=== PATIENT | female | born 1990 | race Caucasian/White ===

== ENCOUNTER → 2016-04-09 | Outpatient (CLI) | payer MEDICAID ==
[~2016-04-09] MED LIST: PRENTAB8 PO
[2016-04-09 19:01] LABS: BASO % 0.3 % (0.0-1.0); EOS # 0.2 K/mm3 (0.0-0.50); EOS % 1.6 % (0.0-3.0); LARGE UNSTAINED CELL # 0.1 K/mm3 (0.0-0.4); LARGE UNSTAINED CELL % 1.2 % (0.0-4.0); LYMPH # 2.4 K/mm3 (1.5-6.5); LYMPH % 24.4 % (24.0-44.0); MEAN CORPUSCULAR HEMOGLOBIN 24.8 pg (27.0-33.0); MEAN CORPUSCULAR HGB CONC 31.7 g/dl (32.0-36.5); MEAN CORPUSCULAR VOLUME 78.3 fl (80.0-96.0); MONO # 0.3 K/mm3 (0.0-0.8); MONO % 3.6 % (0.0-5.0); NEUTROPHILS # 6.7 K/mm3 (1.8-7.7); NEUTROPHILS % 68.8 % (36.0-66.0); PLATELET COUNT, AUTOMATED 318 k/mm3 (150-450); RED CELL DISTRIBUTION WIDTH 13.7 % (11.5-14.5); WHITE BLOOD COUNT 9.7 K/mm3 (4.0-10.0)
[2016-04-10 08:40] LABS: HIV SCRN NEGATIVE (NEGATIVE); HIV SCRN1 NEGATIVE (NEGATIVE)
[2016-04-10 08:41] LABS: CONTROL LINE INT CTR LINE PRESENT
[2016-04-11 10:05] LABS: HBsAg Prenatal NEGATIVE (NEGATIVE)
== END ==
LOC: M SMT 14:38
PROVIDERS: ATTEND Advanced Practice Midwife
DX: Z34.81 Encounter for supervision of other normal pregnancy, first trimester (principal)

== ENCOUNTER → 2016-04-16 | Outpatient (CLI) | payer MEDICAID | LOC: M LAB 12:09 | PROVIDERS: ATTEND Advanced Practice Midwife | DX: Z34.81 Encounter for supervision of other normal pregnancy, first trimester (principal) ==

== ENCOUNTER → 2016-04-22 | Outpatient (CLI) | payer MEDICAID ==
[2016-04-22 12:28] LABS: ALT/SGPT 19 U/L (12-78); AST/SGOT 13 U/L (15-37); BILIRUBIN,TOTAL 0.3 MG/DL (0.2-1.0); CREATININE FOR GFR 0.68 MG/DL (0.55-1.02); GLOMERULAR FILTRATION RATE > 60.0 (>60)
[2016-04-22 12:40] LABS: CREATININE CLEARANCE, URINE 160.2 ML/MIN (75-115); CREATININE, SERUM 0.7 MG/DL (0.6-1.0)
== END ==
LOC: M LAB 11:31
PROVIDERS: ATTEND Advanced Practice Midwife
DX: Z34.81 Encounter for supervision of other normal pregnancy, first trimester (principal)

== ENCOUNTER → 2016-04-24 | Outpatient (CLI) | payer MEDICAID | LOC: M LAB 08:27 | PROVIDERS: ATTEND Advanced Practice Midwife | DX: R73.02 Impaired glucose tolerance (oral) (principal) ==

== ENCOUNTER → 2016-08-21 | Outpatient (CLI) | payer OTHER, MEDICAID ==
[2016-08-21 17:32] LABS: BASO % 0.1 % (0.0-1.0); EOS # 0.1 K/mm3 (0.0-0.50); EOS % 1.3 % (0.0-3.0); LARGE UNSTAINED CELL # 0.2 K/mm3 (0.0-0.4); LARGE UNSTAINED CELL % 2.2 % (0.0-4.0); LYMPH # 2.3 K/mm3 (1.5-6.5); LYMPH % 21.6 % (24.0-44.0); MEAN CORPUSCULAR HEMOGLOBIN 27.7 pg (27.0-33.0); MEAN CORPUSCULAR HGB CONC 33.7 g/dl (32.0-36.5); MEAN CORPUSCULAR VOLUME 82.4 fl (80.0-96.0); MONO # 0.5 K/mm3 (0.0-0.8); MONO % 4.8 % (0.0-5.0); NEUTROPHILS # 7.4 K/mm3 (1.8-7.7); PLATELET COUNT, AUTOMATED 279 k/mm3 (150-450); RED CELL DISTRIBUTION WIDTH 13.6 % (11.5-14.5); WHITE BLOOD COUNT 10.6 K/mm3 (4.0-10.0)
== END ==
LOC: M LAB 16:11
PROVIDERS: ATTEND Obstetrics & Gynecology
DX: O24.113 Pre-existing type 2 diabetes mellitus, in pregnancy, third trimester (principal)

== ENCOUNTER → 2016-09-17 | Outpatient (CLI) | payer OTHER ==
[~2016-09-17] MED LIST changes: +ACET50TA PO; +FERR325T3 PO; +GLYB25TA PO; +IBUP-1022 PO; +LABE30TA PO; +METAPOW PO; +METF500T13 PO
[2016-09-17 14:38] LABS: MEAN CORPUSCULAR HEMOGLOBIN 28.1 pg (27.0-33.0); MEAN CORPUSCULAR HGB CONC 34.3 g/dl (32.0-36.5); MEAN CORPUSCULAR VOLUME 81.9 fl (80.0-96.0); RED CELL DISTRIBUTION WIDTH 13.5 % (11.5-14.5)
== END ==
LOC: M LAB 13:05
PROVIDERS: ATTEND Obstetrics & Gynecology
DX: Z34.83 Encounter for supervision of other normal pregnancy, third trimester (principal)

== ENCOUNTER → 2016-09-18 | Outpatient (CLI) | payer OTHER | LOC: M LAB 11:46 | PROVIDERS: ATTEND Obstetrics & Gynecology | DX: O24.113 Pre-existing type 2 diabetes mellitus, in pregnancy, third trimester (principal); Z3A.00 Weeks of gestation of pregnancy not specified ==

== ENCOUNTER → 2016-10-26 | Outpatient (REF) | payer OTHER | LOC: M LAB REF 17:01 | PROVIDERS: ATTEND Obstetrics & Gynecology | DX: O24.113 Pre-existing type 2 diabetes mellitus, in pregnancy, third trimester (principal); Z3A.00 Weeks of gestation of pregnancy not specified ==

== ENCOUNTER 2016-11-08 10:24 | Inpatient (IN) | payer OTHER ==
[~2016-11-08] VITALS: Ht 162.6 cm; Wt 115.0 kg
[2016-11-08] VITALS (19 sets, daily range): BP systolic 106–139; BP diastolic 56–80
[~2016-11-08 10:24] MED LIST changes: -ACET50TA PO; -FERR325T3 PO; -GLYB25TA PO; -IBUP-1022 PO; -LABE30TA PO; -METAPOW PO; -METF500T13 PO
[2016-11-08] MEDS ORDERED: LABE30TA PO (10:33)
[2016-11-08] MEDS ORDERED: METAPOW PO (10:33)
[2016-11-08] MEDS ORDERED: FERR325T3 PO (10:33)
[2016-11-08] MEDS ORDERED: GLYB25TA PO (10:33)
[2016-11-08] MEDS ORDERED: METF500T13 PO (10:33)
[2016-11-08] MEDS ORDERED: LR 1,000 ML IV SCH (10:34)
[2016-11-08] MEDS ORDERED: LACTATED RINGER'S 1000 ML IV STA (10:34)
[2016-11-08] MEDS ORDERED: LORazepam 1 MG TAB PO PRN (10:45)
[2016-11-08 11:19] LABS: MEAN CORPUSCULAR HEMOGLOBIN 28.1 pg (27.0-33.0); MEAN CORPUSCULAR HGB CONC 34.9 g/dl (32.0-36.5); MEAN CORPUSCULAR VOLUME 80.7 fl (80.0-96.0); RED CELL DISTRIBUTION WIDTH 14.1 % (11.5-14.5); WHITE BLOOD COUNT 10.2 K/mm3 (4.0-10.0)
[2016-11-08 11:25] LABS: INR 0.98
[2016-11-08] MEDS ORDERED: miSOPROStol 50 MCG 1/2 TAB (S0191) PV ONE ×2 (12:30→16:15)
[2016-11-08 12:32] LABS: ALT/SGPT 31 U/L (12-78); AST/SGOT 27 U/L (15-37); BILIRUBIN,TOTAL 0.4 MG/DL (0.2-1.0); CREATININE FOR GFR 0.54 MG/DL (0.55-1.02); GLOMERULAR FILTRATION RATE > 60.0 (>60); URIC ACID 3.9 MG/DL (2.6-6.0)
[2016-11-08 12:39] LABS: FREE T4 0.94 NG/DL (0.76-1.46)
[2016-11-08] MEDS ORDERED: BUTORPHANOL 2 MG/ML INJ (J0595) IV ONE (12:45)
[2016-11-08] MEDS ORDERED: PROMETHAZINE INJ 25 MG/ML VIAL (J2550) IV ONE (12:45)
[2016-11-08] MEDS ORDERED: LABETALOL 200 MG TAB PO ONE (19:30)
[2016-11-08] MEDS ORDERED: FENTANYL 2MCG/ML ROPIVACAINE 0.2% IN 0.9% NACL 200ML IVBAG As Ordered ONE (20:52)
[2016-11-08] MEDS ORDERED: LABETALOL 200 MG TAB PO SCH (21:00)
[2016-11-08] MEDS ORDERED: OXYTOCIN DRIP 30 UNITS in APPROPRIATE DILUENT 1 EA IV SCH (21:30)
[2016-11-08] MEDS ORDERED: EPIDURAL/PCA KEYS XX PRN (22:00)
[2016-11-08] MEDS ORDERED: ONDANSETRON 4MG/2ML VIAL (J2405) IV PRN (22:00)
[2016-11-08] MEDS ORDERED: diphenhydrAMINE INJ 50MG/ML VIAL (J1200) IV PRN (22:00)
[2016-11-08] MEDS ORDERED: ePHEDrine SULFATE 25 MG/5 ML(5MG/ML) SYRINGE IV PRN (22:00)
[2016-11-08] MEDS ORDERED: EPIDURAL COMMENT XX SCH (22:00)
[2016-11-08] MEDS ORDERED: FENTANYL/ROPIVACAINE/NACL BAG 200 ML EPIDURAL SCH (22:00)
[2016-11-08] MEDS ORDERED: REFRIGERATOR IV KEYS XX PRN (22:00)
[2016-11-08] MEDS ORDERED: LACTATED RINGER'S 1000 ML IV PRN (22:00)
[2016-11-08] MEDS ORDERED: NALOXONE INJ 0.4 MG/1 ML VIAL (J2310) IV PRN (22:00)
[2016-11-09] VITALS (30 sets, daily range): BP systolic 106–139; BP diastolic 55–85
[2016-11-09] MEDS ORDERED: LABETALOL 200 MG TAB PO ONE ×2 (07:30→19:00)
[2016-11-09] MEDS: AMPICILLIN SOD/SULBACTAM SOD 3 GM in D5W MINI-BAG PLUS 100 ML IV SCH ×2 (12:51→19:29)
[2016-11-09] MEDS ORDERED: OXYTOCIN DRIP 30 UNITS in APPROPRIATE DILUENT 1 EA IV SCH (13:46)
[2016-11-09] MEDS ORDERED: LR 1,000 ML IV SCH (13:46)
[2016-11-09] MEDS ORDERED: RHOGAM 300 MCG (1500 IU) INJ (J2790) IM SCH (14:00)
[2016-11-09] MEDS ORDERED: MEASLES,MUMPS,RUBELLA VACCINE INJ (MMR-II) (90707) SC SCH (14:00)
[2016-11-09] MEDS ORDERED: ACETAMINOPHEN 500 MG TAB PO PRN (14:00)
[2016-11-09] MEDS ORDERED: ONDANSETRON 4MG/2ML VIAL (J2405) IV PRN (14:00)
[2016-11-09] MEDS ORDERED: IBUPROFEN 800 MG TAB PO PRN (14:00)
[2016-11-09] MEDS ORDERED: PROMETHAZINE 25 MG TAB PO PRN (14:00)
[2016-11-09] MEDS ORDERED: DOCUSATE SODIUM 100 MG CAP PO PRN (14:00)
[2016-11-10] MEDS: AMPICILLIN SOD/SULBACTAM SOD 3 GM in D5W MINI-BAG PLUS 100 ML IV SCH ×2 (01:21→06:52)
[2016-11-10 01:27] VITALS: BP 103/56
[2016-11-10 06:50] VITALS: BP 137/92
[2016-11-10 06:50] LABS: MEAN CORPUSCULAR HEMOGLOBIN 28.8 pg (27.0-33.0); MEAN CORPUSCULAR HGB CONC 35.6 g/dl (32.0-36.5); MEAN CORPUSCULAR VOLUME 80.9 fl (80.0-96.0); WHITE BLOOD COUNT 7.9 K/mm3 (4.0-10.0)
[2016-11-10 06:52] VITALS: BP 137/92
[2016-11-10] MEDS ORDERED: LABETALOL 200 MG TAB PO ONE (07:00)
[2016-11-10] MEDS ORDERED: IBUP-1022 PO (08:44)
[2016-11-10] MEDS ORDERED: ACET50TA PO (08:53)
[2016-11-10] MEDS ORDERED: PRENATAL VITAMINS CHEWABLE TABLET PO SCH (09:00)
[2016-11-11 00:06] LABS: ANTI PARVO VIRUS LEVEL IGG 6.2 index (0.0-0.8); ANTI PARVO VIRUS LEVEL IgM 0.2 index (0.0-0.8)
[2016-11-22 16:19] LABS: CHROMPC1 SEE SEPARATE REPORT
[2016-11-27 10:42] LABS: CHROMPC1 SEE SEPARATE REPORT
[2016-12-10 12:42] LABS: CHROMOSOME MICROARRY SEE SEPARATE REPORT
== END 2016-11-10 09:15 | disposition home or self-care (01) | DRG 560 ==
LOC: M LDI 10:24
PROVIDERS: ADMIT Obstetrics & Gynecology; ATTEND Obstetrics & Gynecology
PROC: 3E0DXGC Introduction of Other Therapeutic Substance into Mouth and Pharynx, External Approach (ICD-10-PCS; 2016-11-08)
PROC: 10E0XZZ Delivery of Products of Conception, External Approach (ICD-10-PCS; principal; 2016-11-09)
DX: O36.4XX0 Maternal care for intrauterine death, not applicable or unspecified (principal); O24.12 Pre-existing type 2 diabetes mellitus, in childbirth; O41.1230 Chorioamnionitis, third trimester, not applicable or unspecified; E66.9 Obesity, unspecified; E11.9 Type 2 diabetes mellitus without complications; O10.02 Pre-existing essential hypertension complicating childbirth; Z37.0 Single live birth; Z79.899 Other long term (current) drug therapy; O69.2XX0 Labor and delivery complicated by other cord entanglement, with compression, not applicable or unspecified; O34.83 Maternal care for other abnormalities of pelvic organs, third trimester; O66.0 Obstructed labor due to shoulder dystocia; O99.214 Obesity complicating childbirth; Z3A.37 37 weeks gestation of pregnancy; O77.0 Labor and delivery complicated by meconium in amniotic fluid; Z79.84 Long term (current) use of oral hypoglycemic drugs

== ENCOUNTER → 2017-03-21 | Outpatient (CLI) | payer OTHER ==
[2017-03-21 16:38] LABS: BASO % 0.2 % (0.0-1.0); EOS # 0.1 10^3/uL (0.0-0.50); EOS % 1.1 % (0.0-3.0); HEMATOCRIT 30.1 % (36.0-47.0); HEMOGLOBIN 10.2 g/dl (12.0-16.0); IMMATURE GRANULOCYTE # 0.1 10^3/uL (0-0); IMMATURE GRANULOCYTE % 0.6 % (0-0); LYMPH # 2.1 10^3/uL (1.5-6.5); LYMPH % 23.3 % (24.0-44.0); MEAN CORPUSCULAR HEMOGLOBIN 25.6 pg (27.0-33.0); MEAN CORPUSCULAR HGB CONC 33.9 g/dl (32.0-36.5); MEAN CORPUSCULAR VOLUME 75.4 fl (80.0-96.0); MONO # 0.5 10^3/uL (0.0-0.8); MONO % 5.1 % (0.0-5.0); NEUTROPHILS # 6.2 10^3/uL (1.8-7.7); NEUTROPHILS % 69.7 % (36.0-66.0); PLATELET COUNT, AUTOMATED 212 10^3/uL (150-450); RED BLOOD COUNT 3.99 10^6/uL (4.00-5.40); RED CELL DISTRIBUTION WIDTH 14.7 % (11.5-14.5); WHITE BLOOD COUNT 8.9 10^3/uL (4.0-10.0)
[2017-03-21 18:21] LABS: ESTIMATED AVERAGE GLUCOSE 128 MG/DL (60-110); HEMOGLOBIN A1c 6.1 %
[2017-03-21 18:39] LABS: ALT/SGPT 13 U/L (12-78); AST/SGOT 12 U/L (7-37); BILIRUBIN,TOTAL 0.1 MG/DL (0.2-1.0); CREATININE FOR GFR 0.41 MG/DL (0.55-1.02); GLOMERULAR FILTRATION RATE > 60.0 (>60); GLUCOSE CHALLENGE TEST 1 HOUR 202 MG/DL (LESS THAN 140); LDH LACTATE DEHYDROGENASE 118 U/L (84-246); URIC ACID 2.8 MG/DL (2.6-6.0)
[2017-03-21 18:41] LABS: TOTAL PROTEIN,RANDOM URINE 15.5 MG/DL (0.0-12.0)
[2017-03-21 19:35] LABS: CHLAMYDIA DNA AMPLIFICATION NEGATIVE (NEGATIVE); GC DNA AMPLIFICATION NEGATIVE (NEGATIVE)
[2017-03-22 17:32] LABS: RUBELLA IgG QUALITATIVE IMMUNE (IMMUNE)
[2017-03-22 17:39] LABS: HBsAg Prenatal NEGATIVE (NEGATIVE)
[2017-03-22 18:00] LABS: HEPATITIS C VIRUS ABY INDEX 0.1 INDEX (<0.8)
[2017-03-22 18:02] LABS: HIV 1&2 SCREEN CENTAUR NEGATIVE (NEGATIVE)
== END ==
LOC: M LAB 15:05
DX: O24.111 Pre-existing type 2 diabetes mellitus, in pregnancy, first trimester (principal)
CPT/HCPCS: 84460

== ENCOUNTER → 2017-07-01 | Outpatient (CLI) | payer OTHER ==
[2017-07-01 11:47] LABS: HEMOGLOBIN 10.1 g/dl (12.0-15.5); MEAN CORPUSCULAR HEMOGLOBIN 27.5 pg (27.0-33.0); MEAN CORPUSCULAR HGB CONC 33.7 g/dl (32.0-36.5); MEAN CORPUSCULAR VOLUME 81.7 fl (80.0-96.0); PLATELET COUNT, AUTOMATED 210 10^3/uL (150-450); RED BLOOD COUNT 3.67 10^6/uL (4.00-5.40); WHITE BLOOD COUNT 9.6 10^3/uL (4.0-10.0)
[2017-07-01 16:29] LABS: ESTIMATED AVERAGE GLUCOSE 114 MG/DL (60-110); HEMOGLOBIN A1c 5.6 %
== END ==
LOC: M LAB 11:20
DX: Z34.82 Encounter for supervision of other normal pregnancy, second trimester (principal); O10.012 Pre-existing essential hypertension complicating pregnancy, second trimester

== ENCOUNTER → 2017-07-17 | Outpatient (CLI) | payer OTHER | LOC: M RAD 15:31 | DX: O10.012 Pre-existing essential hypertension complicating pregnancy, second trimester (principal) ==

== ENCOUNTER → 2017-08-02 | Outpatient (CLI) | payer OTHER | LOC: M RAD 13:33 | DX: O10.03 Pre-existing essential hypertension complicating the puerperium (principal) ==

== ENCOUNTER → 2017-08-09 | Outpatient (CLI) | payer OTHER | LOC: M RAD 15:49 | DX: O10.013 Pre-existing essential hypertension complicating pregnancy, third trimester (principal); Z3A.37 37 weeks gestation of pregnancy | CPT/HCPCS: 76815 ==

== ENCOUNTER → 2017-08-15 | Outpatient (REF) | payer OTHER ==
[2017-08-15 18:27] LABS: CREATININE,RANDOM URINE 88.7 MG/DL
[2017-08-15 18:27] LABS: TOTAL PROTEIN,RANDOM URINE 7.6 MG/DL (0.0-12.0)
== END ==
LOC: M LAB REF 16:58
DX: O13.3 Gestational [pregnancy-induced] hypertension without significant proteinuria, third trimester (principal); Z3A.00 Weeks of gestation of pregnancy not specified

== ENCOUNTER 2017-08-19 14:46 | Inpatient (IN) | payer OTHER ==
[2017-08-19] MEDS: LABETALOL 200 MG TAB PO ×2 (09:00→21:00)
[2017-08-19 16:06] LABS: HEMATOCRIT 31.9 % (36.0-47.0); HEMOGLOBIN 10.7 g/dl (12.0-15.5); MEAN CORPUSCULAR HEMOGLOBIN 27.4 pg (27.0-33.0); MEAN CORPUSCULAR HGB CONC 33.5 g/dl (32.0-36.5); MEAN CORPUSCULAR VOLUME 81.6 fl (80.0-96.0); PLATELET COUNT, AUTOMATED 209 10^3/uL (150-450); RED BLOOD COUNT 3.91 10^6/uL (4.00-5.40); RED CELL DISTRIBUTION WIDTH 14.3 % (11.5-14.5); WHITE BLOOD COUNT 9.4 10^3/uL (4.0-10.0)
[2017-08-19 16:09] LABS: APPEARANCE, URINE CLOUDY (CLEAR); BACTERIA, URINE AUTO 1+ (NEGATIVE); BILIRUBIN, URINE AUTO NEGATIVE (NEGATIVE); BLOOD, URINE BLOOD 1+ (NEGATIVE); COLOR, URINE YELLOW (YELLOW); GLUCOSE, URINE (UA) AUTO NEGATIVE (NEGATIVE); KETONE, URINE AUTO NEGATIVE (NEGATIVE); LEUKOCYTE ESTERASE, URINE AUTO NEGATIVE (NEGATIVE); MUCUS, URINE SMALL (NEGATIVE); NITRITE, URINE AUTO NEGATIVE (NEGATIVE); PROTEIN, URINE AUTO NEGATIVE (NEGATIVE); RBC, URINE AUTO 2 /HPF (0-3); SPECIFIC GRAVITY URINE AUTO 1.015 (1.002-1.035); SQUAMOUS EPITHELIAL CELL UR AU 18 /HPF (0-6); UROBILINOGEN, URINE AUTO 0.2 mg/dL (0.0-2.0); WBC, URINE AUTO 1 /HPF (0-3)
[2017-08-19] MEDS: BETAMETHASONE SOLUSPAN 6MG/ML INJ 5ML (J0702) IM (16:20)
[2017-08-19 16:29] LABS: ALBUMIN 2.5 GM/DL (3.2-5.2); ALBUMIN/GLOBULIN RATIO 0.68 (1.00-1.93); ALKALINE PHOSPHATASE 213 U/L (45-117); ALT/SGPT 28 U/L (12-78); ANION GAP 8 MEQ/L (8-16); AST/SGOT 26 U/L (7-37); BILIRUBIN,TOTAL 0.2 MG/DL (0.2-1.0); BLOOD UREA NITROGEN 8 MG/DL (7-18); CARBON DIOXIDE LEVEL 24 MEQ/L (21-32); CHLORIDE LEVEL 107 MEQ/L (98-107); CREATININE FOR GFR 0.55 MG/DL (0.55-1.30); GLOMERULAR FILTRATION RATE > 60.0 (>60); GLUCOSE, FASTING 111 MG/DL (70-100); SODIUM LEVEL 139 MEQ/L (136-145); TOTAL PROTEIN 6.2 GM/DL (6.4-8.2)
[2017-08-19] MEDS ORDERED: GLUCAGON FOR INJ 1 MG VIAL (J1610) SC (16:30)
[2017-08-19] MEDS ORDERED: DEXTROSE 50% 50 ML SYRINGE IV (16:30)
[2017-08-19] MEDS ORDERED: GLUCOSE 4 GM CHEW TABLET PO (16:30)
[2017-08-19] MEDS: HumuLIN N INSULIN (NovoLIN N) PER UNIT SC (18:15)
[2017-08-19] MEDS: HumuLIN R (REGULAR) INSULIN (NovoLIN R) **100U/ML** PER UNIT SC (18:19)
[2017-08-19 20:26] LABS: BEDSIDE GLUCOSE 191 MG/DL (70-105)
[2017-08-19 20:29] LABS: BEDSIDE GLUCOSE 200 MG/DL (70-105)
[2017-08-19] MEDS: HumaLOG INSULIN (NovoLOG) PER UNIT SC (20:54)
[2017-08-19 23:08] LABS: BEDSIDE GLUCOSE 138 MG/DL (70-105)
[2017-08-20] MEDS: HumaLOG INSULIN (NovoLOG) PER UNIT SC ×6 (07:30→20:02)
[2017-08-20 08:50] LABS: BEDSIDE GLUCOSE 126 MG/DL (70-105)
[2017-08-20] MEDS: LABETALOL 200 MG TAB PO ×2 (09:05→21:01)
[2017-08-20] MEDS: HumuLIN N INSULIN (NovoLIN N) PER UNIT SC ×2 (09:06→17:47)
[2017-08-20] MEDS: HumuLIN R (REGULAR) INSULIN (NovoLIN R) **100U/ML** PER UNIT SC ×2 (09:07→17:48)
[2017-08-20 11:33] LABS: BEDSIDE GLUCOSE 136 MG/DL (70-105)
[2017-08-20 14:30] LABS: ALT/SGPT 30 U/L (12-78); AST/SGOT 31 U/L (7-37); BILIRUBIN,TOTAL 0.2 MG/DL (0.2-1.0); CREATININE FOR GFR 0.57 MG/DL (0.55-1.30); GLOMERULAR FILTRATION RATE > 60.0 (>60); LDH LACTATE DEHYDROGENASE 235 U/L (84-246); URIC ACID 3.9 MG/DL (2.6-6.0)
[2017-08-20 15:13] LABS: BEDSIDE GLUCOSE 147 MG/DL (70-105)
[2017-08-20] MEDS: BETAMETHASONE SOLUSPAN 6MG/ML INJ 5ML (J0702) IM (15:26)
[2017-08-20 19:46] LABS: BEDSIDE GLUCOSE 185 MG/DL (70-105)
[2017-08-21 04:56] LABS: HEMOGLOBIN 10.6 g/dl (12.0-15.5); MEAN CORPUSCULAR HEMOGLOBIN 27.5 pg (27.0-33.0); MEAN CORPUSCULAR HGB CONC 33.1 g/dl (32.0-36.5); MEAN CORPUSCULAR VOLUME 82.9 fl (80.0-96.0); PLATELET COUNT, AUTOMATED 250 10^3/uL (150-450); RED BLOOD COUNT 3.86 10^6/uL (4.00-5.40); RED CELL DISTRIBUTION WIDTH 14.5 % (11.5-14.5); WHITE BLOOD COUNT 13.3 10^3/uL (4.0-10.0)
[2017-08-21] MEDS: LACTATED RINGER'S 1000 ML IV (06:00)
[2017-08-21 07:19] LABS: BEDSIDE GLUCOSE 131 MG/DL (70-105)
[2017-08-21] MEDS: BICITRA 30ML SOLN UDC PO (07:26)
[2017-08-21] MEDS: HumuLIN R (REGULAR) INSULIN (NovoLIN R) **100U/ML** PER UNIT SC ×2 (07:30→17:38)
[2017-08-21] MEDS ORDERED: NALBUPHINE HCL 10 MG/ML AMP (J2300) IV ×2 (07:47→09:15)
[2017-08-21] MEDS ORDERED: NALOXONE INJ 0.4 MG/1 ML VIAL (J2310) IV ×2 (07:47)
[2017-08-21] MEDS ORDERED: METOCLOPRAMIDE INJ 10MG/2ML VIAL (J2765) IV ×2 (07:47→09:15)
[2017-08-21] MEDS ORDERED: ONDANSETRON 4MG/2ML VIAL (J2405) IV ×3 (07:47→09:15)
[2017-08-21 08:24] LABS: CORD GAS ABE V -2.7; CORD GAS HCO3 V 23.7 MEQ/L; CORD GAS O2 SAT V 68.1 %; CORD GAS PCO2 V 46.9 mmHg; CORD GAS PH V 7.321 UNITS; CORD GAS PO2 V 28.8 mmHg; CORD GAS SBC V 21.5 MEQ/L; CORD GAS TCO2 V 25.1 MEQ/L
[2017-08-21 08:27] LABS: CORD GAS ABE A -4.2; CORD GAS HCO3 A 23.9 MEQ/L; CORD GAS O2 SAT A 63.7 %; CORD GAS PCO2 A 56.1 mmHg; CORD GAS PH A 7.247 UNITS; CORD GAS PO2 A 27.9 mmHg; CORD GAS SBC A 20.2 MEQ/L; CORD GAS TCO2 A 25.6 MEQ/L
[2017-08-21] MEDS ORDERED: PERCOCET 5MG/325MG TAB PO (08:45)
[2017-08-21] MEDS: PRENATAL VITAMINS CHEWABLE TABLET PO (09:00)
[2017-08-21] MEDS ORDERED: fentaNYL 100 MCG/2 ML INJECTION (J3010) IV (09:15)
[2017-08-21] MEDS ORDERED: KETOROLAC 30 MG/ML VIAL (J1885) IV (09:15)
[2017-08-21] MEDS: RHOGAM 300 MCG (1500 IU) INJ (J2790) IM (09:37)
[2017-08-21] MEDS: MEASLES,MUMPS,RUBELLA VACCINE INJ (MMR-II) (90707) SC (09:37)
[2017-08-21] MEDS ORDERED: OXYTOCIN 30 UNITS IN 0.9% NaCl 500ML IV BAG (J2590) As Ordered (09:55)
[2017-08-21] MEDS: OXYTOCIN DRIP 30 UNITS in APPROPRIATE DILUENT 1 EA IV (10:00)
[2017-08-21] MEDS: KETOROLAC 30 MG/ML VIAL (J1885) IV ×3 (10:57→22:53)
[2017-08-21] MEDS: HumuLIN N INSULIN (NovoLIN N) PER UNIT SC ×2 (11:27→17:37)
[2017-08-21] MEDS: LR 1,000 ML IV (16:36)
[2017-08-21 17:05] LABS: BEDSIDE GLUCOSE 105 MG/DL (70-105)
[2017-08-21 19:56] LABS: BEDSIDE GLUCOSE 105 MG/DL (70-105)
[2017-08-22] MEDS: KETOROLAC 30 MG/ML VIAL (J1885) IV (04:33)
[2017-08-22] MEDS: PRENATAL VITAMINS CHEWABLE TABLET PO (08:10)
[2017-08-22] MEDS: LABETALOL 200 MG TAB PO ×2 (08:10→20:32)
[2017-08-22] MEDS: HumuLIN N INSULIN (NovoLIN N) PER UNIT SC ×2 (08:11→18:11)
[2017-08-22] MEDS: HumuLIN R (REGULAR) INSULIN (NovoLIN R) **100U/ML** PER UNIT SC ×2 (08:11→18:11)
[2017-08-22 08:15] LABS: HEMATOCRIT 29.1 % (36.0-47.0); HEMOGLOBIN 9.7 g/dl (12.0-15.5); MEAN CORPUSCULAR HEMOGLOBIN 27.6 pg (27.0-33.0); MEAN CORPUSCULAR HGB CONC 33.3 g/dl (32.0-36.5); MEAN CORPUSCULAR VOLUME 82.7 fl (80.0-96.0); PLATELET COUNT, AUTOMATED 196 10^3/uL (150-450); RED BLOOD COUNT 3.52 10^6/uL (4.00-5.40); RED CELL DISTRIBUTION WIDTH 14.6 % (11.5-14.5); WHITE BLOOD COUNT 10.5 10^3/uL (4.0-10.0)
[2017-08-22 08:16] LABS: BEDSIDE GLUCOSE 75 MG/DL (70-105)
[2017-08-22 11:10] LABS: BEDSIDE GLUCOSE 65 MG/DL (70-105)
[2017-08-22 12:26] LABS: BEDSIDE GLUCOSE 86 MG/DL (70-105)
[2017-08-22] MEDS: IBUPROFEN 800 MG TAB PO ×2 (12:34→20:31)
[2017-08-22 14:35] LABS: BEDSIDE GLUCOSE 88 MG/DL (70-105)
[2017-08-22 18:15] LABS: BEDSIDE GLUCOSE 71 MG/DL (70-105)
[2017-08-22 20:13] LABS: BEDSIDE GLUCOSE 141 MG/DL (70-105)
[2017-08-22] MEDS: PERCOCET 5MG/325MG TAB PO (20:31)
[2017-08-23] MEDS: IBUPROFEN 800 MG TAB PO ×3 (05:23→19:51)
[2017-08-23 07:45] LABS: BEDSIDE GLUCOSE 75 MG/DL (70-105)
[2017-08-23] MEDS: HumuLIN N INSULIN (NovoLIN N) PER UNIT SC ×2 (07:50→16:08)
[2017-08-23] MEDS: HumuLIN R (REGULAR) INSULIN (NovoLIN R) **100U/ML** PER UNIT SC ×2 (07:50→16:09)
[2017-08-23] MEDS: PRENATAL VITAMINS CHEWABLE TABLET PO (08:14)
[2017-08-23] MEDS: LABETALOL 200 MG TAB PO ×2 (08:14→21:33)
[2017-08-23] MEDS ORDERED: HumuLIN R (REGULAR) INSULIN (NovoLIN R) **100U/ML** PER UNIT SC (09:37)
[2017-08-23 11:40] LABS: BEDSIDE GLUCOSE 107 MG/DL (70-105)
[2017-08-23 14:58] LABS: BEDSIDE GLUCOSE 108 MG/DL (70-105)
[2017-08-23 21:16] LABS: BEDSIDE GLUCOSE 110 MG/DL (70-105)
[2017-08-23] MEDS: MOM 30ML SUSPENSION UDC PO (21:32)
[2017-08-23] MEDS: DOCUSATE SODIUM 100 MG CAP PO (21:33)
[2017-08-23] MEDS: PERCOCET 5MG/325MG TAB PO (21:34)
[2017-08-24] MEDS: IBUPROFEN 800 MG TAB PO ×2 (06:06→13:00)
[2017-08-24 06:15] LABS: BEDSIDE GLUCOSE 79 MG/DL (70-105)
[2017-08-24] MEDS ORDERED: HumuLIN R (REGULAR) INSULIN (NovoLIN R) **100U/ML** PER UNIT SC (07:30)
[2017-08-24] MEDS: PRENATAL VITAMINS CHEWABLE TABLET PO (09:00)
[2017-08-24] MEDS: LABETALOL 200 MG TAB PO (09:03)
[2017-08-24 10:52] LABS: BEDSIDE GLUCOSE 90 MG/DL (70-105)
== END 2017-08-24 15:00 | disposition home or self-care (01) | DRG 540 ==
LOC: M LDO 14:46 → M OBS 08-21 10:24 → M LDI 15:02
PROC: 10D00Z1 Extraction of Products of Conception, Low, Open Approach (ICD-10-PCS; principal; 2017-08-21)
DX: O24.424 Gestational diabetes mellitus in childbirth, insulin controlled (principal); O60.14X0 Preterm labor third trimester with preterm delivery third trimester, not applicable or unspecified; O10.02 Pre-existing essential hypertension complicating childbirth; Z68.42 Body mass index [BMI] 45.0-49.9, adult; E66.01 Morbid (severe) obesity due to excess calories; O99.214 Obesity complicating childbirth; Z37.0 Single live birth; Z3A.35 35 weeks gestation of pregnancy; O99.824 Streptococcus B carrier state complicating childbirth; Z87.891 Personal history of nicotine dependence; Z79.4 Long term (current) use of insulin; Z79.899 Other long term (current) drug therapy; Z87.59 Personal history of other complications of pregnancy, childbirth and the puerperium; O76 Abnormality in fetal heart rate and rhythm complicating labor and delivery

== ENCOUNTER → 2018-07-24 | Outpatient (REF) | payer OTHER ==
[~2018-07-24] MED LIST changes: +COLA100C5 PO; +FERR325T3 PO; +GLYB25TA PO; +IBUP-1022 PO; +IBUP80TA PO; +INSUN SC; +INSUR SC; +LABE10TAB PO; +LABE300T2 PO; +MAPA500T2 PO; +METAPOW PO; +METF500T13 PO; +OXYC1TAB23 PO
== END ==
LOC: M SFHCPLAZ 17:46
PROVIDERS: ATTEND Dermatology
DX: L72.12 Trichodermal cyst (principal)

== ENCOUNTER 2019-06-27 13:38 | Emergency (ER) | payer OTHER ==
[~2019-06-27] VITALS: Ht 167.6 cm; Wt 117.1 kg
[2019-06-27 14:17] LABS: BASO % 0.4 % (0.0-1.0); EOS # 0.2 10^3/uL (0.0-0.5); EOS % 2.2 % (0.0-3.0); HEMATOCRIT 36.8 % (36.0-47.0); HEMOGLOBIN 12.1 g/dl (12.0-15.5); LYMPH # 2.8 10^3/uL (1.5-5.0); LYMPH % 35.4 % (24.0-44.0); MEAN CORPUSCULAR HEMOGLOBIN 25.6 pg (27.0-33.0); MEAN CORPUSCULAR HGB CONC 32.9 g/dl (32.0-36.5); MEAN CORPUSCULAR VOLUME 77.8 fl (80.0-96.0); MONO # 0.5 10^3/uL (0.0-0.8); MONO % 5.9 % (0.0-5.0); NEUTROPHILS # 4.5 10^3/uL (1.5-8.5); NEUTROPHILS % 55.6 % (36.0-66.0); PLATELET COUNT, AUTOMATED 262 10^3/uL (150-450); RED BLOOD COUNT 4.73 10^6/uL (4.00-5.40)
[2019-06-27 14:37] LABS: INR 1.07; PROTHROMBIN TIME 13.6 SECONDS (11.8-14.0)
[2019-06-27 14:59] LABS: APPEARANCE, URINE HAZY (CLEAR); BACTERIA, URINE AUTO NEGATIVE (NEGATIVE); BILIRUBIN, URINE AUTO NEGATIVE (NEGATIVE); BLOOD, URINE BLOOD 2+ (NEGATIVE); COLOR, URINE YELLOW (YELLOW); GLUCOSE, URINE (UA) AUTO 1+ mg/dL (NEGATIVE); KETONE, URINE AUTO TRACE mg/dL (NEGATIVE); LEUKOCYTE ESTERASE, URINE AUTO NEGATIVE (NEGATIVE); MUCUS, URINE LARGE (NEGATIVE); NITRITE, URINE AUTO NEGATIVE (NEGATIVE); PROTEIN, URINE AUTO 1+ mg/dL (NEGATIVE); RBC, URINE AUTO 3 /HPF (0-3); SPECIFIC GRAVITY URINE AUTO 1.029 (1.002-1.035); SQUAMOUS EPITHELIAL CELL UR AU 2 /HPF (0-6); WBC, URINE AUTO 3 /HPF (0-3)
[2019-06-27 15:00] LABS: ERYTHROCYTE SEDIMENTATION RATE 37 mm/hr (0-20)
--- NOTE | 2019-06-27 15:10 | REP ---
Duplex extremity venous ultrasound: History: Redness , swelling, warmth. Rule out DVT. Findings: The deep veins are anechoic and fully compressible from the groin to the popliteal fossa in the right lower extremity. Color flow imaging is homogeneous. Spectral Doppler interrogation demonstrates intact respiratory variation in flow and normal manual augmentation of flow. There is no evidence of deep vein thrombosis. Impression: Negative right right lower extremity duplex venous ultrasound. No evidence of deep vein thrombosis. Electronically Signed by Earl Howell MD 06/27/2019 03:00 P
[2019-06-27] MEDS ORDERED: KEFL500C17 PO (15:13)
[2019-06-27 15:16] VITALS: BP 158/93
== END 2019-06-27 15:24 | disposition home or self-care (01) ==
LOC: M ED 13:38
DX: L03.115 Cellulitis of right lower limb (principal); R03.0 Elevated blood-pressure reading, without diagnosis of hypertension; R80.9 Proteinuria, unspecified; R73.09 Other abnormal glucose; M79.89 Other specified soft tissue disorders; F17.200 Nicotine dependence, unspecified, uncomplicated; Z86.32 Personal history of gestational diabetes; Z86.79 Personal history of other diseases of the circulatory system

== ENCOUNTER → 2024-01-01 | Outpatient (REF) | payer OTHER ==
[~2024-01-01] MED LIST changes: +GLYB2.5T7 PO; -GLYB25TA PO; +KEFL500C17 PO; +LABE100T6 PO; -LABE10TAB PO; -LABE300T2 PO; +LABE300T28 PO
== END ==
LOC: M PLALAB 09:11
PROVIDERS: ATTEND Specialist
DX: Z53.9 Procedure and treatment not carried out, unspecified reason (principal)

== ENCOUNTER → 2024-01-01 | Outpatient (CLI) | payer OTHER ==
[2024-01-01 13:38] LABS: HEMATOCRIT 37.5 % (36.0-47.0); HEMOGLOBIN 12.6 g/dl (12.0-15.5); MEAN CORPUSCULAR HEMOGLOBIN 26.5 pg (27.0-33.0); MEAN CORPUSCULAR HGB CONC 33.6 g/dl (32.0-36.5); MEAN CORPUSCULAR VOLUME 78.8 fl (80.0-96.0); PLATELET COUNT, AUTOMATED 292 10^3/uL (150-450); RED BLOOD COUNT 4.76 10^6/uL (4.00-5.40); WHITE BLOOD COUNT 10.3 10^3/uL (4.0-10.0)
[2024-01-01 14:54] LABS: HIV 1&2 SCREEN NEGATIVE (NEGATIVE)
[2024-01-01 15:02] LABS: HEPATITIS C VIRUS ABY INDEX 0.02 INDEX (<0.8)
[2024-01-01 16:01] LABS: GC DNA AMPLIFICATION NEGATIVE (NEGATIVE)
== END ==
LOC: M PLALAB 09:17
PROVIDERS: ATTEND Specialist
DX: Z34.81 Encounter for supervision of other normal pregnancy, first trimester (principal); Z3A.00 Weeks of gestation of pregnancy not specified

== ENCOUNTER → 2024-01-31 | Outpatient (REF) | payer OTHER ==
[2024-01-31 17:41] LABS: TOTAL PROTEIN,RANDOM URINE 21.5 MG/DL (0.0-14.0)
[2024-01-31 17:45] LABS: CREATININE,RANDOM URINE 125.3 MG/DL
== END ==
LOC: M SFHCWAGY 16:44
PROVIDERS: ATTEND Obstetrics & Gynecology
DX: O11.2 Pre-existing hypertension with pre-eclampsia, second trimester (principal); O10.912 Unspecified pre-existing hypertension complicating pregnancy, second trimester; Z3A.00 Weeks of gestation of pregnancy not specified

== ENCOUNTER 2024-02-12 11:12 | Emergency (ER) | payer OTHER ==
[~2024-02-12] VITALS: Ht 167.6 cm; Wt 110.0 kg
[2024-02-12 12:24] VITALS: BP 133/73; TEMP 97.6; O2SAT 98
== END 2024-02-12 12:26 | disposition home or self-care (01) ==
LOC: M ED 11:12
DX: M25.472 Effusion, left ankle (principal); E11.9 Type 2 diabetes mellitus without complications; I10 Essential (primary) hypertension

== ENCOUNTER → 2024-02-12 | Outpatient (CLI) | payer OTHER ==
[2024-02-12 14:19] LABS: URIC ACID 3.2 MG/DL (3.1-7.8)
[2024-02-12 14:21] LABS: LDH LACTATE DEHYDROGENASE 139 U/L (120-246)
[2024-02-12 14:22] LABS: ALT/SGPT 11 U/L (7.0-40); AST/SGOT 9 U/L (<34); BILIRUBIN,TOTAL 0.4 MG/DL (0.3-1.2); CREATININE FOR GFR 0.59 MG/DL (0.55-1.30); GLOMERULAR FILTRATION RATE > 60.0 (>60); GLUCOSE CHALLENGE TEST 1 HOUR 245 MG/DL (LESS THAN 140)
[2024-02-12 14:28] LABS: HEMOGLOBIN A1c 6.7 % (4.0-6.0)
== END ==
LOC: M PLALAB 08:15
PROVIDERS: ATTEND Obstetrics & Gynecology
DX: O99.210 Obesity complicating pregnancy, unspecified trimester (principal); O11.2 Pre-existing hypertension with pre-eclampsia, second trimester; Z3A.00 Weeks of gestation of pregnancy not specified; O10.012 Pre-existing essential hypertension complicating pregnancy, second trimester

== ENCOUNTER → 2024-02-19 | Outpatient (CLI) | payer OTHER | LOC: M RAD 15:16 | PROVIDERS: ATTEND Obstetrics & Gynecology | DX: O09.292 Supervision of pregnancy with other poor reproductive or obstetric history, second trimester (principal); Z3A.18 18 weeks gestation of pregnancy ==

== ENCOUNTER → 2024-04-01 | Outpatient (CLI) | payer OTHER | LOC: M RAD 12:35 | PROVIDERS: ATTEND Obstetrics & Gynecology | DX: O10.912 Unspecified pre-existing hypertension complicating pregnancy, second trimester (principal); O32.1XX0 Maternal care for breech presentation, not applicable or unspecified; Z3A.24 24 weeks gestation of pregnancy ==

== ENCOUNTER → 2024-04-10 | Outpatient (CLI) | payer OTHER ==
[2024-04-10 17:33] LABS: URIC ACID 2.9 MG/DL (3.1-7.8)
[2024-04-10 17:35] LABS: LDH LACTATE DEHYDROGENASE 145 U/L (120-246)
[2024-04-10 17:36] LABS: ALT/SGPT 10 U/L (7.0-40); AST/SGOT 13 U/L (<34); BILIRUBIN,TOTAL 0.3 MG/DL (0.3-1.2); CREATININE FOR GFR 0.48 MG/DL (0.55-1.30); GLOMERULAR FILTRATION RATE > 60.0 (>60)
[2024-04-10 17:43] LABS: HEMATOCRIT 29.2 % (36.0-47.0); HEMOGLOBIN 9.8 g/dl (12.0-15.5); MEAN CORPUSCULAR HEMOGLOBIN 27.3 pg (27.0-33.0); MEAN CORPUSCULAR HGB CONC 33.6 g/dl (32.0-36.5); MEAN CORPUSCULAR VOLUME 81.3 fl (80.0-96.0); PLATELET COUNT, AUTOMATED 233 10^3/uL (150-450); RED BLOOD COUNT 3.59 10^6/uL (4.00-5.40)
[2024-04-10 17:59] LABS: TOTAL PROTEIN,RANDOM URINE 29.1 MG/DL (0.0-14.0)
[2024-04-10 18:02] LABS: CREATININE,RANDOM URINE 172.4 MG/DL
== END ==
LOC: M PLALAB 15:25
PROVIDERS: ATTEND Specialist
DX: Z34.82 Encounter for supervision of other normal pregnancy, second trimester (principal)

== ENCOUNTER → 2024-04-21 | Outpatient (CLI) | payer OTHER ==
[2024-04-21 15:21] LABS: HEMATOCRIT 31.3 % (36.0-47.0); HEMOGLOBIN 10.7 g/dl (12.0-15.5); MEAN CORPUSCULAR HEMOGLOBIN 27.6 pg (27.0-33.0); MEAN CORPUSCULAR HGB CONC 34.2 g/dl (32.0-36.5); MEAN CORPUSCULAR VOLUME 80.9 fl (80.0-96.0); PLATELET COUNT, AUTOMATED 261 10^3/uL (150-450); RED BLOOD COUNT 3.87 10^6/uL (4.00-5.40); WHITE BLOOD COUNT 10.4 10^3/uL (4.0-10.0)
[2024-04-21 15:45] LABS: HEMOGLOBIN A1c 6.3 % (4.0-6.0)
[2024-04-21 15:52] LABS: TOTAL PROTEIN,RANDOM URINE 31.3 MG/DL (0.0-14.0)
[2024-04-21 15:55] LABS: URIC ACID 2.8 MG/DL (3.1-7.8)
[2024-04-21 15:57] LABS: CREATININE,RANDOM URINE 111.9 MG/DL; LDH LACTATE DEHYDROGENASE 172 U/L (120-246)
[2024-04-21 15:58] LABS: ALT/SGPT 15 U/L (7.0-40); AST/SGOT 16 U/L (<34); BILIRUBIN,TOTAL 0.3 MG/DL (0.3-1.2); CREATININE FOR GFR 0.54 MG/DL (0.55-1.30); GLOMERULAR FILTRATION RATE > 60.0 (>60)
== END ==
LOC: M PLALAB 13:15
PROVIDERS: ATTEND Obstetrics & Gynecology
DX: O10.919 Unspecified pre-existing hypertension complicating pregnancy, unspecified trimester (principal); O24.319 Unspecified pre-existing diabetes mellitus in pregnancy, unspecified trimester; Z3A.00 Weeks of gestation of pregnancy not specified

== ENCOUNTER → 2024-05-07 | Outpatient (CLI) | payer OTHER ==
[2024-05-07 15:43] LABS: HEMATOCRIT 30.8 % (36.0-47.0); HEMOGLOBIN 10.2 g/dl (12.0-15.5); MEAN CORPUSCULAR HEMOGLOBIN 27.6 pg (27.0-33.0); MEAN CORPUSCULAR HGB CONC 33.1 g/dl (32.0-36.5); MEAN CORPUSCULAR VOLUME 83.2 fl (80.0-96.0); PLATELET COUNT, AUTOMATED 222 10^3/uL (150-450); WHITE BLOOD COUNT 10.2 10^3/uL (4.0-10.0)
[2024-05-07 16:06] LABS: URIC ACID 3.6 MG/DL (3.1-7.8)
[2024-05-07 16:08] LABS: LDH LACTATE DEHYDROGENASE 155 U/L (120-246)
[2024-05-07 16:09] LABS: ALT/SGPT 14 U/L (7.0-40); AST/SGOT 14 U/L (<34); BILIRUBIN,TOTAL 0.3 MG/DL (0.3-1.2); CREATININE FOR GFR 0.55 MG/DL (0.55-1.30); GLOMERULAR FILTRATION RATE > 60.0 (>60); TOTAL PROTEIN,RANDOM URINE 27.3 MG/DL (0.0-14.0)
[2024-05-07 16:10] LABS: CREATININE,RANDOM URINE 105.1 MG/DL
== END ==
LOC: M PLALAB 11:58
PROVIDERS: ATTEND Obstetrics & Gynecology
DX: O11.3 Pre-existing hypertension with pre-eclampsia, third trimester (principal)

== ENCOUNTER 2024-05-12 12:29 | Outpatient (CLI) | payer OTHER ==
[~2024-05-12] VITALS: Ht 165.1 cm; Wt 119.9 kg
[2024-05-12] MEDS: BETAMETHASONE SOLUSPAN 6MG/ML 5ML VIAL IM ONE (14:08)
[2024-05-12 14:09] VITALS: BP 142/79
[2024-05-12] MEDS: LABETALOL 200 MG TAB PO ONE (14:09)
== END 2024-05-12 15:00 | disposition home or self-care (01) ==
LOC: M LDO 12:29
PROVIDERS: ATTEND Specialist
DX: O11.3 Pre-existing hypertension with pre-eclampsia, third trimester (principal); O24.313 Unspecified pre-existing diabetes mellitus in pregnancy, third trimester; O36.5930 Maternal care for other known or suspected poor fetal growth, third trimester, not applicable or unspecified; O34.211 Maternal care for low transverse scar from previous cesarean delivery; E66.89 Other obesity not elsewhere classified; O99.213 Obesity complicating pregnancy, third trimester; O09.293 Supervision of pregnancy with other poor reproductive or obstetric history, third trimester; Z3A.30 30 weeks gestation of pregnancy
CPT/HCPCS: 59025; 96372; G0463; J0702

== ENCOUNTER → 2024-05-12 | Outpatient (CLI) | payer OTHER | LOC: M WHC 09:55 | PROVIDERS: ATTEND Obstetrics & Gynecology | DX: O10.019 Pre-existing essential hypertension complicating pregnancy, unspecified trimester (principal); Z3A.30 30 weeks gestation of pregnancy ==

== ENCOUNTER 2024-05-13 13:28 | Outpatient (CLI) | payer OTHER ==
[~2024-05-13] VITALS: Ht 165.1 cm; Wt 119.4 kg
[2024-05-13] MEDS: BETAMETHASONE SOLUSPAN 6MG/ML 5ML VIAL IM ONE (14:05)
== END 2024-05-13 14:57 | disposition home or self-care (01) ==
LOC: M LDO 13:28
PROVIDERS: ATTEND Advanced Practice Midwife
DX: O24.813 Other pre-existing diabetes mellitus in pregnancy, third trimester (principal); O99.213 Obesity complicating pregnancy, third trimester; O11.3 Pre-existing hypertension with pre-eclampsia, third trimester; O09.293 Supervision of pregnancy with other poor reproductive or obstetric history, third trimester; O36.5930 Maternal care for other known or suspected poor fetal growth, third trimester, not applicable or unspecified; Z3A.30 30 weeks gestation of pregnancy
CPT/HCPCS: 59025; 76815; 76819; 76820; 96372; G0463; J0702

== ENCOUNTER → 2024-05-18 | Outpatient (CLI) | payer OTHER ==
[~2024-05-18] MED LIST changes: +INSU100V19 SC; +Insulin Human Nph SC; +LABE20TAB PO; +NIFE1TAB52 PO; +NOVOINJ12 SC; +NOVOINJ13 SC; +PERCOCET PO
== END ==
LOC: M WHC 09:42
PROVIDERS: ATTEND Obstetrics & Gynecology
DX: O36.5990 Maternal care for other known or suspected poor fetal growth, unspecified trimester, not applicable or unspecified (principal); Z3A.31 31 weeks gestation of pregnancy

== ENCOUNTER 2024-05-25 12:13 | Inpatient (IN) | payer OTHER ==
[~2024-05-25] VITALS: Ht 165.1 cm; Wt 118.1 kg
[2024-05-25] VITALS (11 sets, daily range): BP systolic 150–167; BP diastolic 82–94; TEMP 97.2; O2SAT 96–97
[~2024-05-25 12:13] MED LIST changes: -INSU100V19 SC; -Insulin Human Nph SC; -LABE20TAB PO; -NIFE1TAB52 PO; -NOVOINJ12 SC; -NOVOINJ13 SC; -PERCOCET PO
[2024-05-25] MEDS ORDERED: LIDOCAINE 1% MDV 20ML VIAL INFIL PRN (14:00)
[2024-05-25] MEDS ORDERED: CARBOPROST TROMETHAMINE 250 MCG/ML AMP IM PRN (14:00)
[2024-05-25] MEDS ORDERED: TRANEXAMIC ACID INJection 1,000 MG in NS 100 ML IV PRN (14:00)
[2024-05-25] MEDS ORDERED: OXYTOCIN INJ 10UNITS/ML 1ML VIAL IM PRN (14:00)
[2024-05-25] MEDS: LR 1,000 ML IV SCH ×2 (14:00→18:24)
[2024-05-25] MEDS ORDERED: MORPHINE PRES-FREE INJ 10 MG/10 ML VIAL As Ordered ONE (14:12)
[2024-05-25] MEDS ORDERED: OXYTOCIN INJ 10UNITS/ML 1ML VIAL As Ordered ONE (14:13)
[2024-05-25] MEDS ORDERED: ONDANSETRON 4MG 2ML VIAL As Ordered ONE (14:13)
[2024-05-25] MEDS ORDERED: OXYTOCIN 30UNITS IN 0.9% NaCl 500ML IV BAG As Ordered ONE (14:14)
[2024-05-25] MEDS: LACTATED RINGER'S 1000 ML IV STA (14:32)
[2024-05-25] MEDS ORDERED: LABE20TAB PO ×2 (14:38)
[2024-05-25] MEDS ORDERED: NOVOINJ13 SC ×2 (14:39→14:42)
[2024-05-25] MEDS ORDERED: NOVOINJ12 SC (14:40)
[2024-05-25 14:49] LABS: HEMATOCRIT 33.2 % (36.0-47.0); HEMOGLOBIN 11.2 g/dl (12.0-15.5); MEAN CORPUSCULAR HGB CONC 33.7 g/dl (32.0-36.5); PLATELET COUNT, AUTOMATED 244 10^3/uL (150-450); WHITE BLOOD COUNT 12.3 10^3/uL (4.0-10.0)
[2024-05-25] MEDS: BICITRA 30ML SOLN UDC PO ONE (14:49)
[2024-05-25] MEDS: ceFAZolin SODIUM 2 GM in DEXTROSE 5% (D5W) ADV/MINI-BAG 50 ML IV ONE (14:49)
[2024-05-25 15:15] LABS: URIC ACID 3.2 MG/DL (3.1-7.8)
[2024-05-25 15:18] LABS: ALT/SGPT 10 U/L (7.0-40); AST/SGOT 12 U/L (<34); BILIRUBIN,TOTAL 0.3 MG/DL (0.3-1.2); CREATININE FOR GFR 0.53 MG/DL (0.55-1.30); GLOMERULAR FILTRATION RATE > 60.0 (>60); LDH LACTATE DEHYDROGENASE 172 U/L (120-246)
[2024-05-25] MEDS ORDERED: ACETAMINOPHEN 1000MG/100ML IV BAG As Ordered ONE (15:27)
[2024-05-25] MEDS ORDERED: PHENYLephrine 500MCG 5ML (100MCG/ML) SYRINGE As Ordered ONE (15:32)
[2024-05-25 15:59] LABS: HEPATITIS C VIRUS ABY INDEX 0.02 INDEX (<0.8)
[2024-05-25 16:00] LABS: CORD GAS ABE V -2.7; CORD GAS HCO3 V 24.7 MMOL/L; CORD GAS O2 SAT V 79.5 %; CORD GAS PCO2 V 52.6 mmHg; CORD GAS PH V 7.29 UNITS; CORD GAS PO2 V 36.8 mmHg; CORD GAS SBC V 21.8 MMOL/L; CORD GAS TCO2 V 26.3 MMOL/L
[2024-05-25 16:02] LABS: CORD GAS ABE A -4.3; CORD GAS HCO3 A 26.1 MMOL/L; CORD GAS O2 SAT A 41.3 %; CORD GAS PCO2 A 71.9 mmHg; CORD GAS PH A 7.177 UNITS; CORD GAS PO2 A 20.3 mmHg; CORD GAS SBC A 19.6 MMOL/L; CORD GAS TCO2 A 28.3 MMOL/L
[2024-05-25] MEDS ORDERED: KETOROLAC 30 MG/ML 1ML VIAL As Ordered ONE (16:26)
[2024-05-25] MEDS ORDERED: MOM 30ML SUSPENSION UDC PO PRN (16:30)
[2024-05-25] MEDS ORDERED: ONDANSETRON 4MG 2ML VIAL IV PRN ×2 (16:30→16:40)
[2024-05-25] MEDS ORDERED: ANUSOL HC CREAM 30GM TOP PRN (16:30)
[2024-05-25] MEDS ORDERED: CALCIUM CARBONATE 500 MG CHEW U/D PO PRN (16:30)
[2024-05-25] MEDS ORDERED: MORPHINE 4 MG/ML 1ML VIAL IV PRN (16:30)
[2024-05-25] MEDS ORDERED: RHOGAM 300MCG (1500IU) INJ IM SCH (16:30)
[2024-05-25] MEDS ORDERED: SIMETHICONE 80MG CHEW TAB PO PRN (16:30)
[2024-05-25] MEDS ORDERED: MEPERIDINE 25 MG/ML 1ML VIAL IV PRN (16:40)
[2024-05-25] MEDS ORDERED: HYDROMORPHONE HCL 0.5 MG/ 0.5 ML SYRINGE IV PRN (16:40)
[2024-05-25] MEDS ORDERED: oxyCODONE 5MG TAB PO PRN (16:40)
[2024-05-25] MEDS ORDERED: NALOXONE INJ 0.4MG/1ML VIAL IV PRN ×2 (16:40)
[2024-05-25] MEDS ORDERED: fentaNYL 100 MCG/2 ML INJECTION IV PRN (16:40)
[2024-05-25] MEDS ORDERED: diphenhydrAMINE 50MG/ML VIAL IV PRN (16:40)
[2024-05-25] MEDS ORDERED: METOCLOPRAMIDE INJ 10MG/2ML VIAL IV PRN (16:40)
[2024-05-25] MEDS ORDERED: **NOTE PATIENT COMMENT** MISC XX SCH (16:40)
[2024-05-25] MEDS: SLF 3 ML SYR IV SCH (16:40)
[2024-05-25] MEDS: OXYTOCIN DRIP 30 UNITS in IV 1 EA IV PRN (16:45)
[2024-05-25] MEDS ORDERED: COLA100C5 PO (17:04)
[2024-05-25] MEDS ORDERED: PERCOCET PO (17:04)
[2024-05-25] MEDS ORDERED: IBUP80TA PO (17:04)
[2024-05-25] MEDS: HumuLIN R (REGULAR) INSULIN (NovoLIN R) **100U/ML** PER UNIT SC SCH (17:30)
[2024-05-25 17:38] LABS: HIV 1&2 SCREEN NEGATIVE (NEGATIVE)
[2024-05-25] MEDS: LABETALOL 200 MG TAB PO SCH (18:23)
[2024-05-25] MEDS: OXYTOCIN DRIP 30 UNITS in IV 1 EA IV SCH (18:24)
[2024-05-25] MEDS ORDERED: LABETALOL 200 MG TAB PO SCH (21:00)
[2024-05-25] MEDS: DOCUSATE SODIUM 100MG CAPSULE PO SCH (21:00)
[2024-05-25] MEDS: KETOROLAC 30 MG/ML 1ML VIAL IV SCH (22:42)
[2024-05-26] VITALS (7 sets, daily range): BP systolic 138–156; BP diastolic 70–102; O2SAT 96–98
[2024-05-26] MEDS: ENOXAPARIN 40MG/0.4ML SYRINGE (J1650 PER 10MG) SC SCH (03:22)
[2024-05-26 06:17] LABS: HEMATOCRIT 29.3 % (36.0-47.0); HEMOGLOBIN 9.9 g/dl (12.0-15.5); MEAN CORPUSCULAR HEMOGLOBIN 28.4 pg (27.0-33.0); MEAN CORPUSCULAR HGB CONC 33.8 g/dl (32.0-36.5); PLATELET COUNT, AUTOMATED 210 10^3/uL (150-450); RED BLOOD COUNT 3.49 10^6/uL (4.00-5.40); WHITE BLOOD COUNT 14.3 10^3/uL (4.0-10.0)
[2024-05-26 07:19] LABS: CREATININE,RANDOM URINE < 13.0 MG/DL
[2024-05-26 07:30] LABS: TOTAL PROTEIN,RANDOM URINE < 6.0 MG/DL (0.0-14.0)
[2024-05-26] MEDS: HumuLIN N INSULIN (NovoLIN N) PER UNIT SC SCH (07:43)
[2024-05-26] MEDS: PRENATAL VITAMINS CHEWABLE TABLET PO SCH (09:46)
[2024-05-26] MEDS: IBUPROFEN 800 MG TAB PO SCH (18:13)
[2024-05-26] MEDS: PERCOCET 5MG/325MG TAB PO PRN (21:26)
[2024-05-27] VITALS (15 sets, daily range): BP systolic 138–199; BP diastolic 70–105; O2SAT 96–99
[2024-05-27] MEDS: MEASLES,MUMPS,RUBELLA VACCINE INJ (MMR-II) SC.IMMUN ONE (08:53)
[2024-05-27] MEDS: LABETALOL 200 MG TAB PO SCH (18:04)
[2024-05-27] MEDS ORDERED: hydrALAZINE 20MG/ML 1ML VIAL IV STA (18:34)
[2024-05-27] MEDS: hydrALAZINE 20MG/ML 1ML VIAL IV STA ×2 (18:39→19:16)
[2024-05-27] MEDS: LABETALOL 100MG/20ML VIAL IV STA ×2 (20:17→20:36)
[2024-05-27] MEDS: ACETAMINOPHEN 500 MG TAB PO PRN (20:28)
[2024-05-27] MEDS: NIFEdipine 30MG XL TAB PO SCH (20:30)
[2024-05-28] MEDS: PERCOCET 5MG/325MG TAB PO PRN (01:35)
[2024-05-28 02:13] VITALS: BP 152/86
[2024-05-28 06:35] VITALS: BP 120/78; O2SAT 96
[2024-05-28 10:45] VITALS: BP 122/72; O2SAT 98
[2024-05-28 18:37] VITALS: BP 128/92; O2SAT 98
[2024-05-28 19:30] VITALS: BP 136/72; O2SAT 96
[2024-05-28 22:00] VITALS: BP 138/70; O2SAT 96
[2024-05-29 02:27] VITALS: BP 136/76; O2SAT 98
[2024-05-29 06:14] VITALS: BP 130/68; O2SAT 97
[2024-05-29 10:00] VITALS: BP 136/68; O2SAT 98
[2024-05-29] MEDS ORDERED: NIFE1TAB52 PO (14:22)
[2024-05-29] MEDS ORDERED: LABE20TAB PO (14:22)
[2024-05-29] MEDS ORDERED: INSU100V19 SC (14:25)
[2024-05-29] MEDS ORDERED: Insulin Human Nph SC (14:25)
== END 2024-05-29 16:30 | disposition home or self-care (01) | DRG 540 ==
LOC: M WHC 12:13 → M LDI 13:50 → M OBS 18:05
PROVIDERS: ADMIT Advanced Practice Midwife; ATTEND Obstetrics & Gynecology
PROC: 0UB70ZZ Excision of Bilateral Fallopian Tubes, Open Approach (ICD-10-PCS; 2024-05-25)
PROC: 10D00Z1 Extraction of Products of Conception, Low, Open Approach (ICD-10-PCS; principal; 2024-05-25 15:03)
DX: O34.211 Maternal care for low transverse scar from previous cesarean delivery (principal); O24.113 Pre-existing type 2 diabetes mellitus, in pregnancy, third trimester; O36.5930 Maternal care for other known or suspected poor fetal growth, third trimester, not applicable or unspecified; O10.02 Pre-existing essential hypertension complicating childbirth; Z3A.32 32 weeks gestation of pregnancy; Z79.4 Long term (current) use of insulin; Z79.899 Other long term (current) drug therapy; Z37.0 Single live birth; Z30.2 Encounter for sterilization